=== PATIENT | male | born 1995 | race Caucasian/White ===

== ENCOUNTER 2021-11-14 20:20 | Emergency (ER) | payer BC ==
[2021-11-14 20:55] VITALS: BP 155/108; PULSE 70; RESP 16; TEMP 98.1
[2021-11-14] MEDS ORDERED: FAMOTIDINE 20 MG TAB PO STA (21:18)
[2021-11-14] MEDS ORDERED: DEXAMETHASONE SOD PHOSPHATE 10 MG/ML 1 ML VIAL IM STA (21:18)
[2021-11-14] MEDS ORDERED: diphenhydrAMINE 50 MG/ML 1 ML VIAL IVP STA (21:18)
--- NOTE | 2021-11-14 21:22 | ED ---
General Adult HPI - General Chief complaint: Allergic Reaction Stated complaint: Bee sting, Possible Allergic Reaction Time Seen by Provider: 11/14/21 21:10 Source: patient Mode of arrival: ambulatory Limitations: no limitations - History of Present Illness Initial comments: Dictation was produced using [employer] dictation software. please excuse any grammatical, word or spelling errors. Chief Complaint: 26 old male presents emergency Department after bee sting to the right calf History of Present Illness: Patient is a 26-year-old male. He states that approximately 30 minutes prior to arrival he was stung by a bee in his right calf while walking around in his backyard. Patient states that 3 years ago he was stung by a bee at a work libertarian and had a seizure. He was prescribed an EpiPen at that time. I was unclear if patient had anaphylaxis from the bee sting. Patient has not filled the EpiPen since then. He still has a p rescription however. Denies any chest pain. Denies any shortness of breath. Denies any sensation of throat closure. Denies any facial swelling, nausea or vomiting. The ROS documented in this emergency department record has been reviewed and confirmed by me. Those systems with pertinent positive or negative responses have been documented in the HPI. All other systems are other negative and/or noncontributory. PHYSICAL EXAM: General Impression: Alert and oriented x3, not in acute distress HEENT: Normocephalic atraumatic, extra-ocular movements intact, pupils equal and reactive to light bilaterally, mucous membranes moist. Cardiovascular: Heart regular rate and rhythm Chest: Able to complete full sentences, no retractions, no tachypnea, lungs are auscultation bilaterally Abdomen: abdomen soft, non-tender, non-distended, no organomegaly Musculoskeletal: Pulses present and equal in all extremities, no peripheral edema Motor: no focal deficits noted Neurological: CN II-XII grossly intact, no focal motor or sensory deficits noted Skin: Intact with no visualized rashes Psych: Normal affect and mood ED course: 26 y Old male presents to the emergency department after bee sting. He presents to the ER to be evaluated for severe ALLERGIC reaction. Patient not showing signs of anaphylaxis. Vital signs upon arrival are within acceptable limits. Patient does not meet criteria for EpiPen injection. Patient however given steroids, antihistamines. Return precautions discussed. Patient discharged. - Related Data Allergies Allergy/AdvReac Type Severity Reaction Status Date / Time cephalexin [From Keflex] Allergy Rash/Hives Verified 11/14/21 20:55 Review of Systems ROS Statement: Those systems with pertinent positive or pertinent negative responses have been documented in the HPI. ROS Other: All systems not noted in ROS Statement are negative. Past Medical History Past Medical History: No Reported History History of Any Multi-Drug Resistant Organisms: None Reported Past Surgical History: No Surgical Hx Reported Past Psychological History: No Psychological Hx Reported Smoking Status: Current every day smoker Past Alcohol Use History: Occasional Past Drug Use History: None Reported General Exam Limitations: no limitations Course Vital Signs 11/14/21 20:52 Temperature 98.1 F Pulse Rate 70 Respiratory 16 Rate Blood Pressure 155/108 O2 Sat by Pulse 100 Oximetry Disposition Clinical Impression: Bee sting Disposition: HOME SELF-CARE Condition: Fair Instructions (If sedation given, give patient instructions): Insect Bite or Sting (ED) Additional Instructions: Return to the emergency department if he develops symptoms of throat closure, shortness of breath, lightheadedness, nausea or abdominal pain. These are all symptoms of anaphylaxis that need to be treated emergently. Is patient prescribed a controlled substance at d/c from ED?: No Referrals: Cesar Whitehead MD [Primary Care Provider] - 1-2 days Time of Disposition: 21:22
== END 2021-11-14 21:44 | disposition home or self-care (01) ==
LOC: EC 20:20
DX: T63.441A Toxic effect of venom of bees, accidental (unintentional), initial encounter (principal); F17.200 Nicotine dependence, unspecified, uncomplicated; Z88.1 Allergy status to other antibiotic agents
CPT/HCPCS: 99282; 96374; 96372; J1200; J1100